=== PATIENT | male | born 1990 | race Caucasian/White ===

== ENCOUNTER 2023-07-05 06:56 | Emergency (ER) | payer BC | END 2023-07-05 07:19 | disposition home or self-care (01) | LOC: MW.ED 06:56 | DX: K08.89 Other specified disorders of teeth and supporting structures (principal); Z88.2 Allergy status to sulfonamides; Z88.8 Allergy status to other drugs, medicaments and biological substances; Z75.8 Other problems related to medical facilities and other health care | CPT/HCPCS: 99282; 99283 ==

== ENCOUNTER 2023-07-05 12:24 | Emergency (ER) | payer BC ==
[2023-07-05] MEDS: Acetaminophen 500 MG Tab PO ONE (13:02)
[2023-07-05] MEDS: Ibuprofen 800 MG Tab PO ONE (13:02)
== END 2023-07-05 13:57 | disposition home or self-care (01) ==
LOC: MW.ED 12:24
DX: K04.7 Periapical abscess without sinus (principal); F17.210 Nicotine dependence, cigarettes, uncomplicated; Z75.8 Other problems related to medical facilities and other health care; Z88.2 Allergy status to sulfonamides; Z88.8 Allergy status to other drugs, medicaments and biological substances; Z79.899 Other long term (current) drug therapy
CPT/HCPCS: 99283; A9270